=== PATIENT | male | born 1980 | race Caucasian/White ===

== ENCOUNTER 2020-01-16 03:10 | Emergency (ER) | payer SELFPAY ==
[2020-01-16 03:18] VITALS: BP 125/79; PULSE 76; RESP 18; TEMP 36.4; O2SAT 99; BMI 25.8
[2020-01-16 03:21] VITALS: BP 111/63; PULSE 74; RESP 16; O2SAT 97
--- NOTE | 2020-01-16 03:27 | W.ED.EYEPROB ---
HPI - Eye Problem General: Chief complaint: Eye Problems Stated complaint: foreign object in eye Time Seen by Provider: 01/16/20 03:16 History of Present Illness: HPI Narrative: Mr. Gipson is a nice 39-year-old male who is using a wire brush on metal yesterday so he could paint something. He felt something fly up underneath his safety goggles and get in his eye but it was only irritating for a few seconds. Tonight he woke up with severe pain in his left eye with matting. He states his vision is blurred because of this. He denies any other complaints or concerns. Review of Systems General: Reports: 10 or more systems reviewed and unremarkable except in HPI and below PFSH ED PFSH: Social History Smoking and tobacco status: current every day smoker Physical Exam Const: COMMON NORMALS: no apparent distress, oriented x3, no limitations, healthy appearing and well nourished EXAM LIMITATIONS: no altered mental status GENERAL APPEARANCE: cooperative, well kempt and well developed ORIENTATION/CONSCIOUSNESS: Yes awake HENMT: COMMON NORMALS: normocephalic, head/scalp atraumatic, hearing grossly normal bilaterally, external ears normal, EAC's normal, external nose normal and moist oral mucous membranes HEAD & SCALP: normal to inspection, normocephalic and atraumatic FACE & SINUS: normal facial exam and face symmetric NOSE: external nose normal and nares normal EXTERNAL EAR: Yes external ears normal EXTERNAL AUDITORY CANAL: EAC's normal MOUTH: oral and palatal mucosa normal and tongue normal Eye: COMMON NORMALS: PERRL, EOMs intact bilaterally, no scleral icterus and normal visual miner by confrontation VISUAL ACUITY: Yes other (See nurses notes) VISUAL MINER: No peripheral vision loss and No central vision loss ALIGNMENT: Yes alignment normal PERIORBITAL: periorbital findings normal EYELID: other (Left eyelid with mild swelling) CONJUNCTIVA: Yes conjunctiva abnormal positive left conjunctival injection SCLERA: sclerae normal PUPIL: Yes PERRL EOM: Yes EOM abnormal OTHER: Slit-lamp was nonfunctioning so cannot be used. Gonzalez lamp revealed floor seen uptake at 3 spots in the inferior medial portion of the left cornea. Inverted eyelid revealed no evidence of foreign body underneath eyelid. Neck/C-Spine: COMMON NORMALS: full ROM, no lymphadenopathy, supple, no meningeal signs and no JVD GENERAL: Yes normal visual inspection and Yes trachea midline CERVICAL SPINE: Yes cervical ROM normal Chest: COMMONS NORMALS: inspection of chest normal and palpation of chest normal Resp: COMMON NORMALS: normal respiratory effort, no retractions, no use of accessory muscles and clear to auscultation bilaterally EFFORT & INSPECTION: Yes able to speak in complete sentences AUSCULTATION: clear to auscultation bilaterally Cardio: COMMON NORMALS: no JVD, regular rate, regular rhythm, S1 normal heart sound, S2 normal heart sound, no gallops, no clicks, no murmurs and no rub JUGULAR VENOUS DISTENTION: no JVD RATE: regular rate RHYTHM: regular rhythm HEART SOUNDS: S1 normal and S2 normal GI: COMMON NORMALS: soft to palpation, non-tender, no hepatosplenomegaly and no masses INSPECTION: Yes normal to inspection PALPATION: Yes soft and Yes no hepatosplenomegaly : COMMON NORMALS: Yes no CVA tenderness BLADDER/KIDNEY EXAM: Yes no CVA tenderness Back/Pelvis: COMMON NORMALS: no CVA tenderness, thoracic and lumbar spine normal to inspection, no thoracic nor lumbar tenderness and thoraco-lumbar ROM normal Extremity: COMMON NORMALS: normal to inspection, full ROM, normal capillary refill, no joint enlargement, no clubbing, cyanosis or edema and no calf tenderness Neuro: COMMON NORMALS: oriented x3, CN's II-XII intact bilaterally, moves all extremities, no focal motor deficits and no sensory deficits noted MENINGEAL SIGNS: Yes no meningeal signs Psych: COMMON NORMALS: mental status grossly normal, thought process normal, cooperative, affect normal, speech normal and activity/motor behavior normal APPEARANCE: Yes well kempt SPEECH: Yes normal speech THOUGHT PROCESS: normal thought process Skin: COMMON NORMALS: no rashes or lesions noted, skin turgor normal, no jaundice, no petechiae and no mottling GENERAL SKIN EXAM: no rashes or lesions noted and turgor normal Course Vital Signs: Vital signs: Vital Signs Temperature 97.6 F 01/16/20 03:18 Pulse Rate 76 01/16/20 03:18 Respiratory Rate 18 01/16/20 03:18 Blood Pressure 125/79 01/16/20 03:18 Pulse Oximetry 99 01/16/20 03:18 MDM - Eye Problem MDM Narrative: Medical decision making narrative: Our slit-lamp has failed and did not work. I was unable to remove the foreign body using the Gonzalez lamp. I reviewed the case in full with Dr. Cage who is in agreement to see the patient in his office at 1 PM for removal of the foreign body. I reviewed this with the patient and he affirms to me that he will be able to make that appointment. He will be given a pain pill here and discharged home with 2 pain pills and erythromycin ointment. Discharge Plan Discharge Patient Disposition: Home, Self-Care Clinical Impression: Acute foreign body of right cornea Qualifiers: Encounter type: initial encounter Qualified Code(s): T15.01XA - Foreign body in cornea, right eye, initial encounter Condition: Stable Prescriptions: No Action No Known Home Medications RF: 0 Discharge Orders: Discharge Order (Routine); Ordered 01/16/20 Ordered By: Emilie Olvera Referrals: Erich Cage MD [Physician] - 1-3 days (Be at Dr. Cage office approximately 15 minutes before 1 PM as he will examine you in his office and help remove the foreign body from your eye.) Discharge Diet: Usual diet Discharge Activity: Increase activity as tolerated Patient Instructions: Eye Foreign Body (ED) Activity Restrictions/Additional Instructions: Please return to the ER immediately for any of the signs or symptoms listed on your discharge instruction sheets, worsening/changing of your symptoms, you are not getting better as quickly as expected, or for ANY other cause or concerns. Be certain to follow-up with Dr. 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
[2020-01-16] MEDS: tetracaine 0.5% Op Soln 4 mL Btl 1 DROP EYE-BOTH (03:31)
[2020-01-16] MEDS: fluorescein 1 mg Strip EYE-BOTH (03:31)
--- NOTE | 2020-01-16 03:32 | PC.NURSE ---
Visual Acuity - Right 20/25 Left - 20/25 Both - 20/20
[2020-01-16] MEDS: HYDROcodone-acetaminophen 5-325 mg Tablet 3 TAB PO (03:44)
[2020-01-16] MEDS: erythromycin Op Oint 1 gm 1 APPLIC EYE-LEFT (03:47)
== END 2020-01-16 03:55 | disposition home or self-care (01) ==
PROVIDERS: Emergency Provider Emergency Medicine
DX: T15.01XA Foreign body in cornea, right eye, initial encounter (principal); X58.XXXA Exposure to other specified factors, initial encounter; F17.200 Nicotine dependence, unspecified, uncomplicated
CPT/HCPCS: 12345; 99281; 99283

== ENCOUNTER 2020-04-18 16:00 | Emergency (ER) | payer SELFPAY ==
[2020-04-18 16:10] VITALS: BP 133/87; PULSE 84; RESP 24; TEMP 36.9; O2SAT 100; BMI 28.7
--- NOTE | 2020-04-18 16:15 | ECG_ITS ---
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 Measurements Intervals [place] Rate: 76 P: 65 LA: 157 QRS: 55 QRSD: 110 T: 61 QT: 367 QTc: 413 Interpretive Statements SINUS RHYTHM No previous ECG available for comparison Electronically Signed On 04-18-2020 16:41:47 CDT by Britton Salvador M.D. [id number]
--- NOTE | 2020-04-18 16:15 | XR_ITS ---
WS: [id number] Portable AP upright chest, 04/18/2020 Clinical Data: cp Comparison: None. Findings: No nodules, masses or effusions are seen. The heart is normal. The pulmonary vascularity is not increased. No pneumonia or pneumothorax is seen. XR/XR chest 1V portable [id number] Impression: Negative chest.
--- NOTE | 2020-04-18 16:17 | W.ED.SOB ---
Documented by User: Radha Stauffer MD 04/19/20 05:57 HPI - SOB/Dyspnea General: Chief Complaint: Shortness of Breath/Dyspnea Stated Complaint: sob Time Seen by Provider: 04/18/20 16:11 Source: patient Mode of arrival: ambulatory Limitations: no limitations History of Present Illness: HPI Narrative: 39-year-old male who states he has been having shortness of breath over the last 2 days. Patient appears quite anxious. He states he is having these sharp pains in his chest and feels like he just cannot get a short deep breath then. He has any history of respiratory issues. He has no wheezing. He denies any fever or vomiting. He denies any cough. He states he was a former smoker and just quit recently. Associated symptoms: Deny abdominal pain, chest pain, fever(s), nausea or vomiting Review of Systems Const: Denies: fever(s), chills, body aches or change in appetite Eyes: Denies: blurry vision or eye discomfort ENMT: Denies: throat pain or dental pain Card: Denies: chest pain Resp: Reports: dyspnea GI: Denies: abdominal pain, nausea, vomiting or diarrhea : Denies: dysuria Musc: Denies: neck pain or back pain Skin/Breast: Denies: rash Neuro: Denies: headache(s) Psych: Denies: depression Tyler/Lymph: Denies: easy bruising All/Imm: Denies: urticaria PFSH ED PFSH: Social History Smoking and tobacco status: current every day smoker Physical Exam Const: COMMON NORMALS: no acute distress, patient oriented x3 and healthy appearing HENMT: COMMON NORMALS: normocephalic and atraumatic HEAD & SCALP: normocephalic and atraumatic Eye: COMMON NORMALS: Equal, round and reactive pupils present and EOMs intact bilaterally PUPIL: Yes Equal, round and reactive pupils present Neck/C-Spine: COMMON NORMALS: full ROM and supple Chest: COMMONS NORMALS: normal inspection of the chest and normal palpation of entire chest wall Resp: COMMON NORMALS: normal respiratory effort, No retractions, No use of accessory muscles and clear to auscultation bilaterally AUSCULTATION: clear to auscultation bilaterally Cardio: COMMON NORMALS: regular rate, regular rhythm and No murmurs present (Cardio) RATE: regular rate RHYTHM: regular rhythm GI: COMMON NORMALS: Normal to inspection, nondistended, normoactive bowel sounds present, Soft to palpation, non-tender and no masses PALPATION: Yes Soft to palpation Extremity: COMMON NORMALS: normal to inspection and full ROM Neuro: COMMON NORMALS: patient oriented x3, moves all extremities and no focal motor deficits Psych: COMMON NORMALS: mental status grossly normal, Normal thought process present and cooperative MOOD & AFFECT: Yes anxious THOUGHT PROCESS: Normal thought process present Skin: COMMON NORMALS: no rashes or lesions noted and no wounds GENERAL SKIN EXAM: no rashes or lesions noted Course Vital Signs: Vital signs: Vital Signs Temperature 98.5 F 04/18/20 16:10 Pulse Rate 66 04/18/20 19:51 Respiratory Rate 14 04/18/20 19:51 Blood Pressure 124/68 04/18/20 19:51 Pulse Oximetry 99 04/18/20 19:51 MDM - SOB/Dyspnea MDM Narrative: Medical decision making narrative: Patient presents for shortness of breath along with atypical chest pain. Patient's x-ray and lab work are normal. His first troponin and d-dimer are negative. When spoke to patient he still states he just feels like he cannot get air and. He has no wheezing but will give him Decadron along with a breathing treatment. We will get a CTA of his chest and check 2-hour troponin. Patient's care turned over to Dr. Roman. Patient has not required any oxygen has had normal vital signs here. Lab Data: Labs: Lab Results 04/18/20 04/18/20 04/18/20 Range/Units 16:35 16:35 16:35 WBC 7.0 (4.0-10.0) 10^3/ uL RBC 4.26 (4.1-5.3) 10^6/u L Hgb 13.5 (11.7-16.6) g/dL Hct 40.0 L (42.0-52.0) % MCV 93.9 (80-94) fL MCH 31.7 (28.0-34.0) pg MCHC 33.8 (30.0-36.0) g/dL RDW 12.3 (12.1-15.1) % Plt Count 213 (130-400) 10^3/c mm MPV 11.2 H (7.4-10.4) fL Neut % (Auto) 56.3 % Lymph % (Auto) 21.0 % [place] % (Auto) 7.8 % Eos % (Auto) 14.2 % Baso % (Auto) 0.4 % Neut # (Auto) 3.96 (1.8-7.7) 10^3/u L Lymph # (Auto) 1.5 (0.8-4.8) 10^3/u L [place] # (Auto) 0.6 (0.2-0.9) 10^3/u L Eos # (Auto) 1.0 H (0.0-0.8) 10^3/u L Baso # (Auto) 0.0 (0.0-0.1) 10^3/u L Nucleated RBC % (a uto) 0 % Nucleated RBCs # 0.0 /100WBC PT 12.30 (10.5-13.3) SECO NDS INR 0.89 (0.8-1.2) D-Dimer 0.34 (0-0.59) ug/mIFE U Sodium 141 (136-145) mmol/L Potassium 3.6 (3.5-5.1) mmol/L Chloride 107 (98-107) mmol/L Carbon Dioxide 24 (22-29) mmol/L Anion Gap 13.6 (5-19) BUN 15 (6-20) mg/dL Creatinine 0.8 (0.7-1.2) mg/dL GFR Calculation 106.5 (90-130) mL/min Glucose 105 (65-115) mg/dL Calculated Osmolal ity 289 (285-295) mOsm/k g Calcium 9.0 (8.5-10.5) mg/dL Total Bilirubin 0.2 (0.15-1.2) mg/dL AST 16 (0-40) U/L ALT 25 (0-41) U/L Alkaline Phosphata se 83 (40-130) IU/L Troponin T Baselin e (0-15) ng/L Troponin T 120 Min [place] (0-15) ng/L Delta Troponin T (0-10) ABS# NT-Pro-B Natriuret Pep 25 (0-125) pg/mL Total Protein 6.7 (6.6-8.7) g/dL Albumin 4.3 (3.5-5.2) g/dL Globulin 2.4 (1.3-4.6) g/dL 04/18/20 04/18/20 Range/Units 16:35 18:15 WBC (4.0-10.0) 10^3/ uL RBC (4.1-5.3) 10^6/u L Hgb (11.7-16.6) g/dL Hct (42.0-52.0) % MCV (80-94) fL MCH (28.0-34.0) pg MCHC (30.0-36.0) g/dL RDW (12.1-15.1) % Plt Count (130-400) 10^3/c mm MPV (7.4-10.4) fL Neut % (Auto) % Lymph % (Auto) % [place] % (Auto) % Eos % (Auto) % Baso % (Auto) % Neut # (Auto) (1.8-7.7) 10^3/u L Lymph # (Auto) (0.8-4.8) 10^3/u L [place] # (Auto) (0.2-0.9) 10^3/u L Eos # (Auto) (0.0-0.8) 10^3/u L Baso # (Auto) (0.0-0.1) 10^3/u L Nucleated RBC % (a uto) % Nucleated RBCs # /100WBC PT (10.5-13.3) SECO NDS INR (0.8-1.2) D-Dimer (0-0.59) ug/mIFE U Sodium (136-145) mmol/L Potassium (3.5-5.1) mmol/L Chloride (98-107) mmol/L Carbon Dioxide (22-29) mmol/L Anion Gap (5-19) BUN (6-20) mg/dL Creatinine (0.7-1.2) mg/dL GFR Calculation (90-130) mL/min Glucose (65-115) mg/dL Calculated Osmolal ity (285-295) mOsm/k g Calcium (8.5-10.5) mg/dL Total Bilirubin (0.15-1.2) mg/dL AST (0-40) U/L ALT (0-41) U/L Alkaline Phosphata se (40-130) IU/L Troponin T Baselin e 6 (0-15) ng/L Troponin T 120 Min [place] 6.00 (0-15) ng/L Delta Troponin T 0 (0-10) ABS# NT-Pro-B Natriuret Pep (0-125) pg/mL Total Protein (6.6-8.7) g/dL Albumin (3.5-5.2) g/dL Globulin (1.3-4.6) g/dL Imaging Data^: CXR: Attestation: I personally reviewed and interpreted this imaging study as follows: Radiologist's impression: XRay Report Signed Patient: Guillermo Head Unit #: [id number] : 1980 Age/Sex: 39 / M ADM Date: 04/18/20 Loc: ER Room/Bed: Attending Dr: Ordering Provider/Ordering MD: Radha Stauffer MD Date of Service: 04/18/20 Procedure(s): XR chest 1V portable [id number] Accession Number(s): [id number] Report Number: [id number] WS: [id number] Portable AP upright chest, 04/18/2020 Clinical Data: cp Comparison: None. Findings: No nodules, masses or effusions are seen. The heart is normal. The pulmonary vascularity is not increased. No pneumonia or pneumothorax is seen. XR/XR chest 1V portable [id number] Impression: Negative chest. EKG Data^: EKG 1: Attestation: I personally reviewed and interpreted this EKG as follows: EKG Interpretation Date: 04/18/20 EKG interpretation time: 16:32 Interpretation: nsr hr [address] or t wave abnormalities qrs 110 qtc 397 Discharge Plan Discharge Patient Disposition: Home, Self-Care Clinical Impression: Acute bronchitis with bronchospasm, Incidental pulmonary nodule Condition: Stable Prescriptions: New prednisone 10 mg tablet 20 mg PO TID 5 Days Qty: 30 RF: 0 doxycycline hyclate 100 mg capsule 100 mg PO BID 10 Days Qty: 20 RF: 0 albuterol sulfate 90 mcg/actuation HFA aerosol inhaler 2 inh INHALATION Q4H PRN (Reason: shortness of breath or wheezing) Qty: 6.7 RF: 0 hydroxyzine pamoate 50 mg capsule 50 mg PO TID PRN (Reason: anxiety) Qty: 30 RF: 0 No Action Tylenol Extra Strength 500 mg Tablet 2,500 mg PO PRN RF: 0 Discharge Orders: Discharge Order (Routine); Ordered 04/18/20 Ordered By: Emilie Olvera Discharge Diet: Advance as tolerated Discharge Activity: Increase activity as tolerated Patient Instructions: Acute Bronchitis (ED) Activity Restrictions/Additional Instructions: Please return to the ER immediately for any of the signs or symptoms listed on your discharge instruction sheets, worsening/changing of your symptoms, you are not getting better as quickly as expected, or for ANY other cause or concerns. Please return to the ER for chest pain, return of your shortness of breath, fever, vomiting, or for any other cause for concern. Our case management department will call you to help you set up with a primary care physician. Be certain to follow-up for recheck of your pulmonary nodule as well. Discharge Date/Time: 04/18/20 19:53 Sign Out Sign Out Data: Patient Sign Out occurred on 04/18/20 at 18:20. Patient's care was discussed, and care was transferred from to Emilie Olvera. Coding Level of Care Code ED Kennel Supervisor for Chg Fwd Exam Comprehensive Documented by User: Emilie Olvera 04/18/20 21:29 HPI - SOB/Dyspnea General: Chief Complaint: Shortness of Breath/Dyspnea Stated Complaint: sob Time Seen by Provider: 04/18/20 16:11 PFSH ED PFSH: Social History Smoking and tobacco status: current every day smoker Course Vital Signs: Vital signs: Vital Signs Temperature 98.5 F 04/18/20 16:10 Pulse Rate 66 04/18/20 19:51 Respiratory Rate 14 04/18/20 19:51 Blood Pressure 124/68 04/18/20 19:51 Pulse Oximetry 99 04/18/20 19:51 MDM - SOB/Dyspnea MDM Narrative: Medical decision making narrative: Patient turned over to me, Dr. Olvera at change of shift from Dr. Stauffer. Please see his note for his history, physical exam and medical decision-making notes. At the time of my exam the patient has no complaints or concerns other than he states he feels anxious. 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 On my exam the patient does not have any wheezing but he has already received a breathing treatment once by Dr. Stauffer. Patient ultimately states he wants to go home and I have discussed all his findings and risk factors with him but after his CT is back and he wants to be discharged if it is normal. He requests we refer him to a regular doctor and I will have case management work on this. Currently the patient is feeling much better and is ready to go home. At this time I see no sign of acute coronary syndrome, his heart score is 1. CT is ordered to definitively rule out PE and nothing that he describes sounds like acute aortic dissection, pneumonia, pneumothorax or any other life-threatening cause of chest pain. Patient's CT has come back normal and he wants to be discharged. I will place him on a brief course of steroids for his asthma. He agrees to return should his symptoms change or worsen. He understands he is welcome to return anytime even if he changes his mind. Lab Data: Attestation: I reviewed the patient's lab results. Labs: Lab Results 04/18/20 04/18/20 04/18/20 Range/Units 16:35 16:35 16:35 WBC 7.0 (4.0-10.0) 10^3/ uL RBC 4.26 (4.1-5.3) 10^6/u L Hgb 13.5 (11.7-16.6) g/dL Hct 40.0 L (42.0-52.0) % MCV 93.9 (80-94) fL MCH 31.7 (28.0-34.0) pg MCHC 33.8 (30.0-36.0) g/dL RDW 12.3 (12.1-15.1) % Plt Count 213 (130-400) 10^3/c mm MPV 11.2 H (7.4-10.4) fL Neut % (Auto) 56.3 % Lymph % (Auto) 21.0 % [place] % (Auto) 7.8 % Eos % (Auto) 14.2 % Baso % (Auto) 0.4 % Neut # (Auto) 3.96 (1.8-7.7) 10^3/u L Lymph # (Auto) 1.5 (0.8-4.8) 10^3/u L [place] # (Auto) 0.6 (0.2-0.9) 10^3/u L Eos # (Auto) 1.0 H (0.0-0.8) 10^3/u L Baso # (Auto) 0.0 (0.0-0.1) 10^3/u L Nucleated RBC % (a uto) 0 % Nucleated RBCs # 0.0 /100WBC PT 12.30 (10.5-13.3) SECO NDS INR 0.89 (0.8-1.2) D-Dimer 0.34 (0-0.59) ug/mIFE U Sodium 141 (136-145) mmol/L Potassium 3.6 (3.5-5.1) mmol/L Chloride 107 (98-107) mmol/L Carbon Dioxide 24 (22-29) mmol/L Anion Gap 13.6 (5-19) BUN 15 (6-20) mg/dL Creatinine 0.8 (0.7-1.2) mg/dL GFR Calculation 106.5 (90-130) mL/min Glucose 105 (65-115) mg/dL Calculated Osmolal ity 289 (285-295) mOsm/k g Calcium 9.0 (8.5-10.5) mg/dL Total Bilirubin 0.2 (0.15-1.2) mg/dL AST 16 (0-40) U/L ALT 25 (0-41) U/L Alkaline Phosphata se 83 (40-130) IU/L Troponin T Baselin e (0-15) ng/L Troponin T 120 Min [place] (0-15) ng/L Delta Troponin T (0-10) ABS# NT-Pro-B Natriuret Pep 25 (0-125) pg/mL Total Protein 6.7 (6.6-8.7) g/dL Albumin 4.3 (3.5-5.2) g/dL Globulin 2.4 (1.3-4.6) g/dL 04/18/20 04/18/20 Range/Units 16:35 18:15 WBC (4.0-10.0) 10^3/ uL RBC (4.1-5.3) 10^6/u L Hgb (11.7-16.6) g/dL Hct (42.0-52.0) % MCV (80-94) fL MCH (28.0-34.0) pg MCHC (30.0-36.0) g/dL RDW (12.1-15.1) % Plt Count (130-400) 10^3/c mm MPV (7.4-10.4) fL Neut % (Auto) % Lymph % (Auto) % [place] % (Auto) % Eos % (Auto) % Baso % (Auto) % Neut # (Auto) (1.8-7.7) 10^3/u L Lymph # (Auto) (0.8-4.8) 10^3/u L [place] # (Auto) (0.2-0.9) 10^3/u L Eos # (Auto) (0.0-0.8) 10^3/u L Baso # (Auto) (0.0-0.1) 10^3/u L Nucleated RBC % (a uto) % Nucleated RBCs # /100WBC PT (10.5-13.3) SECO NDS INR (0.8-1.2) D-Dimer (0-0.59) ug/mIFE U Sodium (136-145) mmol/L Potassium (3.5-5.1) mmol/L Chloride (98-107) mmol/L Carbon Dioxide (22-29) mmol/L Anion Gap (5-19) BUN (6-20) mg/dL Creatinine (0.7-1.2) mg/dL GFR Calculation (90-130) mL/min Glucose (65-115) mg/dL Calculated Osmolal ity (285-295) mOsm/k g Calcium (8.5-10.5) mg/dL Total Bilirubin (0.15-1.2) mg/dL AST (0-40) U/L ALT (0-41) U/L Alkaline Phosphata se (40-130) IU/L Troponin T Baselin e 6 (0-15) ng/L Troponin T 120 Min [place] 6.00 (0-15) ng/L Delta Troponin T 0 (0-10) ABS# NT-Pro-B Natriuret Pep (0-125) pg/mL Total Protein (6.6-8.7) g/dL Albumin (3.5-5.2) g/dL Globulin (1.3-4.6) g/dL Imaging Data^: CXR: My impression: No acute cardiopulmonary findings. CT Chest: Radiologist's impression: [place] [address] CT Scan Report Signed Patient: Guillermo Head Unit #: [id number] : 1980 Age/Sex: 39 / M ADM Date: 04/18/20 Loc: ER Room/Bed: Attending Dr: Ordering Provider/Ordering MD: Radha Stauffer MD Date of Service: 04/18/20 Procedure(s): CT angio chest PE protcl [id number] Accession Number(s): [id number] Report Number: [id number] PROCEDURE INFORMATION: Exam: CT Angiography Chest With Contrast Exam date and time: 04/18/2020 5:33 PM Age: 39 years old Clinical indication: Dyspnea TECHNIQUE: Imaging protocol: Computed tomographic angiography of the chest with intravenous contrast. 3D rendering: MIP and/or 3D reconstructed images were created by the technologist. Radiation optimization: All CT scans at this facility use at least one of these dose optimization techniques: automated exposure control; mA and/or kV adjustment per patient size (includes targeted exams where dose is matched to clinical indication); or iterative reconstruction. Contrast material: OMNI 350; Contrast volume: 85 ml; Contrast route: INTRAVENOUS (IV); COMPARISON: CR XR chest 1V portable [id number] 04/18/2020 4:33 PM RADIATION DOSE METRICS: Total DLP (mGy-cm): 629.08 FINDINGS: Pulmonary arteries: Normal. No pulmonary emboli. Aorta: Unremarkable. No aortic aneurysm. No aortic dissection. Lungs: 5 mm peripheral right lower lobe nodule (series 2, axial image 247). No acute infiltrates. Pleural space: Unremarkable. No pneumothorax. No pleural effusion. Heart: Unremarkable. No cardiomegaly. No pericardial effusion. Lymph nodes: Unremarkable. No enlarged lymph nodes. Bones/joints: Unremarkable. No acute fracture. Soft tissues: Unremarkable. CT/CT angio chest PE protcl [id number] IMPRESSION: 1.) No acute process evident. 2.) Small 5 mm right lung base nodule. Per Fleischner Society guidelines, low risk patient, no routine follow-up indicated. High risk patient, consider optional CT at 12 months. Radiation Dose CTDIVOL = (mGy): DLP = 629.08 (mGy-cm) Dictated By: Will Chairez MD Signed By: Will Chairez MD Signed Date/Time: 04/18/201907 DD/ 05 EKG Data^: EKG 1: Attestation: I personally reviewed and interpreted this EKG as follows: EKG Interpretation Date: 04/18/20 EKG interpretation time: 16:32 Interpretation: Normal sinus rhythm at 76 beats a minute, nonspecific ST-T wave changes. EKG 2: Attestation: I personally reviewed and interpreted this EKG as follows: EKG Interpretation Date: 04/18/20 EKG interpretation time: 18:13 Interpretation: Normal sinus rhythm at 69 beats a minute, nonspecific ST and T wave changes, no acute findings. Unchanged from previous. Discharge Plan Discharge Patient Disposition: Home, Self-Care Clinical Impression: Acute bronchitis with bronchospasm, Incidental pulmonary nodule Condition: Stable Prescriptions: New prednisone 10 mg tablet 20 mg PO TID 5 Days Qty: 30 RF: 0 doxycycline hyclate 100 mg capsule 100 mg PO BID 10 Days Qty: 20 RF: 0 albuterol sulfate 90 mcg/actuation HFA aerosol inhaler 2 inh INHALATION Q4H PRN (Reason: shortness of breath or wheezing) Qty: 6.7 RF: 0 hydroxyzine pamoate 50 mg capsule 50 mg PO TID PRN (Reason: anxiety) Qty: 30 RF: 0 No Action Tylenol Extra Strength 500 mg Tablet 2,500 mg PO PRN RF: 0 Discharge Orders: Discharge Order (Routine); Ordered 04/18/20 Ordered By: Emilie Olvera Discharge Diet: Advance as tolerated Discharge Activity: Increase activity as tolerated Patient Instructions: Acute Bronchitis (ED) Activity Restrictions/Additional Instructions: Please return to the ER immediately for any of the signs or symptoms listed on your discharge instruction sheets, worsening/changing of your symptoms, you are not getting better as quickly as expected, or for ANY other cause or concerns. Please return to the ER for chest pain, return of your shortness of breath, fever, vomiting, or for any other cause for concern. Our case management department will call you to help you set up with a primary care physician. Be certain to follow-up for recheck of your pulmonary nodule as well. Discharge Date/Time: 04/18/20 19:53 Sign Out Sign Out Data: Patient Sign Out occurred on 04/18/20 at 18:20. Patient's care was discussed, and care was transferred from to Emilie Olvera. Coding Level of Care Code ED Kennel Supervisor for Flavia Fwd Exam Comprehensive
[2020-04-18 16:44] LABS: Basophils % 0.4 %; Eosinophils % 14.2 %; Hemoglobin 13.5 g/dL (11.7-16.6); Lymphocytes # 1.5 10^3/uL (0.8-4.8); Mean Corpuscular HGB Conc 33.8 g/dL (30.0-36.0); Mean Corpuscular Hemoglobin 31.7 pg (28.0-34.0); Mean Corpuscular Volume 93.9 fL (80-94); Mean Platelet Volume 11.2 fL (7.4-10.4); Monocytes # 0.6 10^3/uL (0.2-0.9); Monocytes % 7.8 %; Neutrophils # 3.96 10^3/uL (1.8-7.7); Neutrophils % 56.3 %; Nucleated Red Blood Cells % 0 %; Platelet Count 213 10^3/cmm (130-400); Red Blood Count 4.26 10^6/uL (4.1-5.3); Red Cell Distribution Width 12.3 % (12.1-15.1)
[2020-04-18] MEDS: LORazepam 2 mg/mL INJ 1 mL 1 MG IVP (16:45)
[2020-04-18] MEDS: ketorolac 30 mg/mL INJ 15 MG IVP (16:50)
[2020-04-18 16:59] LABS: INR 0.89 (0.8-1.2)
[2020-04-18 17:01] LABS: D Dimer 0.34 ug/mIFEU (0-0.59)
[2020-04-18 17:10] LABS: Troponin(5th) Baseline 6 ng/L (0-15)
[2020-04-18 17:15] VITALS: BP 151/77; PULSE 65; RESP 16; O2SAT 97
[2020-04-18 17:20] LABS: Alanine Aminotransferase 25 U/L (0-41); Albumin Level 4.3 g/dL (3.5-5.2); Alkaline Phosphatase 83 IU/L (40-130); Anion Gap 13.6 (5-19); Aspartate Amino Transferase 16 U/L (0-40); Blood Urea Nitrogen 15 mg/dL (6-20); Carbon Dioxide 24 mmol/L (22-29); Chloride 107 mmol/L (98-107); Globulin 2.4 g/dL (1.3-4.6); Glomerular Filtration Rate 106.5 mL/min (90-130); Glucose 105 mg/dL (65-115); NT Pro B Type Natriuretic Pept 25 pg/mL (0-125); Osmolality Calculated 289 mOsm/kg (285-295); Potassium 3.6 mmol/L (3.5-5.1); Sodium 141 mmol/L (136-145); Total Bilirubin 0.2 mg/dL (0.15-1.2); Total Protein 6.7 g/dL (6.6-8.7)
--- NOTE | 2020-04-18 17:26 | CTR_ITS ---
PROCEDURE INFORMATION: Exam: CT Angiography Chest With Contrast Exam date and time: 04/18/2020 5:33 PM Age: 39 years old Clinical indication: Dyspnea TECHNIQUE: Imaging protocol: Computed tomographic angiography of the chest with intravenous contrast. 3D rendering: MIP and/or 3D reconstructed images were created by the technologist. Radiation optimization: All CT scans at this facility use at least one of these dose optimization techniques: automated exposure control; mA and/or kV adjustment per patient size (includes targeted exams where dose is matched to clinical indication); or iterative reconstruction. Contrast material: OMNI 350; Contrast volume: 85 ml; Contrast route: INTRAVENOUS (IV); COMPARISON: CR XR chest 1V portable [id number] 04/18/2020 4:33 PM RADIATION DOSE METRICS: Total DLP (mGy-cm): 629.08 FINDINGS: Pulmonary arteries: Normal. No pulmonary emboli. Aorta: Unremarkable. No aortic aneurysm. No aortic dissection. Lungs: 5 mm peripheral right lower lobe nodule (series 2, axial image 247). No acute infiltrates. Pleural space: Unremarkable. No pneumothorax. No pleural effusion. Heart: Unremarkable. No cardiomegaly. No pericardial effusion. Lymph nodes: Unremarkable. No enlarged lymph nodes. Bones/joints: Unremarkable. No acute fracture. Soft tissues: Unremarkable. CT/CT angio chest PE protcl [id number] IMPRESSION: 1.) No acute process evident. 2.) Small 5 mm right lung base nodule. Per Fleischner Society guidelines, low risk patient, no routine follow-up indicated. High risk patient, consider optional CT at 12 months. Radiation Dose CTDIVOL = (mGy): DLP = 629.08 (mGy-cm)
[2020-04-18] MEDS: ipratropium-albuterol 3 mL Neb INHALATION (17:41)
[2020-04-18 17:42] VITALS: PULSE 71; RESP 20; O2SAT 100
[2020-04-18 17:49] VITALS: PULSE 71; RESP 18; O2SAT 100
--- NOTE | 2020-04-18 18:15 | ECG_ITS ---
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 Measurements Intervals [place] Rate: 69 P: 64 MA: 160 QRS: 56 QRSD: 107 T: 56 QT: 381 QTc: 410 Interpretive Statements SINUS RHYTHM Compared to ECG 04/18/2020 16:32:16 No significant changes Electronically Signed On 04-19-2020 19:18:31 CDT by Shimon Chau M.D. [id number]
[2020-04-18 18:16] VITALS: BP 127/67; PULSE 71; RESP 16; O2SAT 99
[2020-04-18] MEDS: iohexol 350 mg/mL 100 mL Btl IV (18:28)
[2020-04-18 18:42] LABS: Troponin 5 2HR Delta 0 ABS# (0-10)
--- NOTE | 2020-04-18 18:50 | PC.NURSE ---
Read and agree with assessment.
[2020-04-18 19:51] VITALS: BP 124/68; PULSE 66; RESP 14; O2SAT 99
--- NOTE | 2020-04-19 11:15 | DCPLANNER ---
residential real estate sales manager had message to speak with patient about getting established with a primary care physician. residential real estate sales manager called patient, unable to speak with patient at this time, a voicemail was left for patient to return complex case manager phone call.
== END 2020-04-18 19:53 | disposition home or self-care (01) ==
PROVIDERS: Emergency Medicine; Emergency Provider Emergency Medicine
DX: J20.9 Acute bronchitis, unspecified (principal); R91.1 Solitary pulmonary nodule; F17.210 Nicotine dependence, cigarettes, uncomplicated
CPT/HCPCS: 12345; 36415; 71045; 71275; 80053; 83880; 84484; 85025; 85378; 85610; 93005; 94640; 96374; 96375; 99283; 99284; J1885; J2060; J3490; Q9967

== ENCOUNTER → 2021-09-06 07:17 | Outpatient (BNVA) | payer OTHER, SELFPAY | PROVIDERS: Visit Provider Family Medicine Adult Medicine | DX: Z13.6 Encounter for screening for cardiovascular disorders (principal) | CPT/HCPCS: 80053; 80061; 83036; 84153; 84443; 85025 ==

== ENCOUNTER 2022-02-04 09:56 | Emergency (ER) | payer OTHER, SELFPAY ==
[2022-02-04 09:59] VITALS: BP 141/82; PULSE 93; RESP 18; TEMP 36.3; O2SAT 97; BMI 31.0
--- NOTE | 2022-02-04 11:01 | ED_ITS ---
HPI - Eye Problem General: Chief complaint: Eye Problems Stated complaint: eye injury Time Seen by Provider: 02/04/22 11:00 [facility] ED PFSH: Medical History (Updated 10/10/21 @ 15:21 by Maik Coello MD) Dyslipidemia (high LDL; low HDL) Elevated blood pressure reading FHx: heart disease Surgical History Hx of appendectomy Hx of elbow surgery Family History Other CAD (coronary artery disease) Cancer Hyperlipidemia Hypertension Stroke Social History Alcohol intake: never Marital status: Number of children: 3 Current occupational status: employed Course Vital Signs: Vital signs: Vital Signs Temperature 97.4 F L 02/04/22 09:59 Pulse Rate 93 02/04/22 09:59 Respiratory Rate 18 02/04/22 09:59 Blood Pressure 141/82 02/04/22 09:59 Pulse Oximetry 97 02/04/22 09:59 Discharge Plan Discharge Condition: Stable Prescriptions: No Action niacin 500 mg capsule, extended release 500 mg PO DAILY 90 Days Qty: 90 0RF Tylenol Extra Strength 500 mg Tablet 2,500 mg PO PRN 0RF Referrals: Maik Coello MD [Primary Care Provider] - Coding Level of Care Code ED Rn Advanced for Flavia Connolly
--- NOTE | 2022-02-04 11:05 | W.ED.EYEPROB ---
HPI - Eye Problem General: Chief complaint: Eye Problems Stated complaint: eye injury Time Seen by Provider: 02/04/22 11:00 Source: patient Mode of arrival: ambulatory Limitations: no limitations History of Present Illness: 41-year-old male states that he was grinding a metal 2 days ago and has had eye pain since then. He believes he does have a piece of metal in his right eye he states he has had redness and drainage from that eye with some blurry vision. Denies any worsening proving factors states his pain is currently 5 out of 10. He has not seen anyone for this. Associated symptoms: Denies fever(s), headache(s), nausea, neck pain or vomiting Review of Systems Const: Denies: fever(s), chills, body aches or change in appetite Eyes: Reports: eye discomfort; Denies: blurry vision ENMT: Denies: throat pain or dental pain Card: Denies: chest pain Resp: Denies: dyspnea GI: Denies: abdominal pain, nausea, vomiting or diarrhea : Denies: dysuria Musc: Denies: neck pain or back pain Skin/Breast: Denies: rash Neuro: Denies: headache(s) Psych: Denies: depression Tyler/Lymph: Denies: easy bruising All/Imm: Denies: urticaria PFSH ED PFSH: Medical History Dyslipidemia (high LDL; low HDL) Elevated blood pressure reading FHx: heart disease Surgical History Hx of appendectomy Hx of elbow surgery Family History Other CAD (coronary artery disease) Cancer Hyperlipidemia Hypertension Stroke Social History Alcohol intake: never Marital status: Number of children: 3 Current occupational status: employed Physical Exam Const: COMMON NORMALS: no acute distress, patient oriented x3 and healthy appearing HENMT: COMMON NORMALS: normocephalic and atraumatic HEAD & SCALP: normocephalic and atraumatic Eye: COMMON NORMALS: Equal, round and reactive pupils present and EOMs intact bilaterally PUPIL: Yes Equal, round and reactive pupils present OTHER: Foreign body noted to anterior right eye appears to be a piece of metal Neck/C-Spine: COMMON NORMALS: full ROM and supple Chest: COMMONS NORMALS: normal inspection of the chest and normal palpation of entire chest wall Resp: COMMON NORMALS: normal respiratory effort, No retractions, No use of accessory muscles and clear to auscultation bilaterally AUSCULTATION: clear to auscultation bilaterally Cardio: COMMON NORMALS: regular rate, regular rhythm and No murmurs present (Cardio) RATE: regular rate RHYTHM: regular rhythm GI: COMMON NORMALS: Normal to inspection, nondistended, normoactive bowel sounds present, Soft to palpation, non-tender and no masses PALPATION: Yes Soft to palpation Extremity: COMMON NORMALS: normal to inspection and full ROM Neuro: COMMON NORMALS: patient oriented x3, moves all extremities and no focal motor deficits Psych: COMMON NORMALS: mental status grossly normal, Normal thought process present and cooperative THOUGHT PROCESS: Normal thought process present Skin: COMMON NORMALS: no rashes or lesions noted and no wounds GENERAL SKIN EXAM: no rashes or lesions noted Course Vital Signs: Vital signs: Vital Signs Temperature 97.4 F L 02/04/22 09:59 Pulse Rate 93 02/04/22 09:59 Respiratory Rate 18 02/04/22 09:59 Blood Pressure 141/82 02/04/22 09:59 Pulse Oximetry 97 02/04/22 09:59 MDM - Eye Problem Medical Decision Making Patient presents here with foreign body to his right eye. Was able to remove it successfully with 20-gauge IV catheter does have a rust ring was unable to Latrell as we do not have any more bur drill attachments we will get him follow-up with ophthalmology in 1 to 2 days he is to return if worsening. Discharge Plan Discharge Patient Disposition: Home Clinical Impression: Foreign body, eye Condition: Stable Prescriptions: New erythromycin 5 mg/gram (0.5 %) ointment 1 applic ophthalmic (eye) Q8H 7 Days Qty: 3.5 0RF No Action niacin 500 mg capsule, extended release 500 mg PO DAILY 90 Days Qty: 90 0RF Tylenol Extra Strength 500 mg Tablet 2,500 mg PO PRN 0RF Discharge Orders: Discharge ED (Routine); Ordered 02/04/22 Ordered By: Radha Stauffer Referrals: Maik Coello MD [Primary Care Provider] - Discharge Diet: Advance as tolerated Discharge Activity: Resume usual activity Patient Instructions: Eye Foreign Body (ED) Coding Level of Care Code ED Scientific Programmer Analyst for Flavia Fwd Exam Comprehensive
[2022-02-04] MEDS: fluorescein 1 mg Strip EYE-RIGHT (11:14)
[2022-02-04] MEDS: tetracaine 0.5% Op Soln 4 mL Btl 1 DROP EYE-RIGHT (11:14)
--- NOTE | 2022-02-05 09:25 | DCPLANNER ---
Addendum entered by Tata Hennessy 02/06/22 13:30: broadcast operations manager called the office of Dr. Cage to confirm that clinic received patients referral. broadcast operations manager was told that patient did receive the referral, appointment was scheduled, patient did not attend appointment. Original Note: broadcast operations manager had message to schedule a follow up appointment for patient with Dr. Cage. broadcast operations manager faxed patients information to the office of Dr. Cage. Patients information will be reviewed, clinic will call patient with appointment information.
== END 2022-02-04 11:19 | disposition home or self-care (01) ==
PROVIDERS: Emergency Provider Emergency Medicine; PCP Family Medicine Adult Medicine
DX: T15.91XA Foreign body on external eye, part unspecified, right eye, initial encounter (principal); X58.XXXA Exposure to other specified factors, initial encounter
CPT/HCPCS: 99283

== ENCOUNTER 2024-01-11 03:04 | Emergency (ER) | payer SELFPAY ==
[2024-01-11 03:09] VITALS: BP 142/88; PULSE 71; RESP 16; TEMP 36.3; O2SAT 99; BMI 30.7
[2024-01-11] MEDS: tetracaine 0.5% Op Soln 4 mL Btl 1 DROP EYE-BOTH (03:19)
--- NOTE | 2024-01-11 03:31 | ED_ITS ---
HPI - Eye Problem General: Chief complaint: Eye Problems Stated complaint: Burned Both Eyes Time Seen by Provider: 01/11/24 03:10 History of Present Illness: Patient presents to the ER with bilateral eye pain. 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 This not the first time that this happened to him Review of Systems General: Reports: 10 or more systems reviewed and unremarkable except in HPI and below PFSH ED PFSH: Medical History Dyslipidemia (high LDL; low HDL) FHx: heart disease Elevated blood pressure reading Surgical History Hx of appendectomy Hx of elbow surgery Family History Other CAD (coronary artery disease) Cancer Hyperlipidemia Hypertension Stroke Social History Alcohol intake: never Substance/Drug Use: current Substance/Drug use frequency: daily Marital status: Number of children: 3 Current occupational status: employed Physical Exam Const: COMMON NORMALS: no acute distress, average body habitus, patient oriented x3, no limitations, healthy appearing, alert and well nourished HENMT: COMMON NORMALS: normocephalic, atraumatic, hearing grossly normal bilaterally, external ears normal, Normal external nose present, moist oral mucous membranes and oropharynx normal HEAD & SCALP: normocephalic and atraumatic NOSE: Normal external nose present EXTERNAL EAR: Yes external ears normal Eye: COMMON NORMALS: Equal, round and reactive pupils present (Both sclera are red and irritated) and EOMs intact bilaterally PUPIL: Yes Equal, round and reactive pupils present (Both sclera are red and irritated) Neck/C-Spine: COMMON NORMALS: full ROM, no lymphadenopathy, supple, no meningeal signs, no JVD and Thyroid normal THYROID: Thyroid normal Chest: COMMONS NORMALS: normal inspection of the chest and normal palpation of entire chest wall Resp: COMMON NORMALS: normal respiratory effort, No retractions, No use of accessory muscles and clear to auscultation bilaterally AUSCULTATION: clear to auscultation bilaterally Cardio: COMMON NORMALS: no JVD Neuro: COMMON NORMALS: patient oriented x3 SENSORIUM/ORIENTATION: Yes alert MENINGEAL SIGNS: Yes no meningeal signs Course Vital Signs: Vital signs: Vital Signs Temperature 97.4 F L 01/11/24 03:09 Pulse Rate 80 01/11/24 04:13 Respiratory Rate 14 01/11/24 04:13 Blood Pressure 142/88 01/11/24 03:09 Pulse Oximetry 99 01/11/24 04:13 Oxygen Delivery Me thod Room Air 01/11/24 03:09 MDM - Eye Problem Medical Decision Making It appears patient burned both eyes while welding without appropriate eyewear. These eyes were anesthetized with tetracaine drops which helped very good and patient felt much better. He was discussed why this happened and this was not the patient's first time this is happening. Patient be discharged home to follow-up with his PCP or four slide machine operator on an as-needed basis. Differential Diagnosis Likely conjunctivitis; Unlikely corneal abrasion, acute iritis, hyphema, periorbital cellulitis, subconjunctival hemorrhage, glaucoma, corneal ulcer or ruptured globe Medical Records I reviewed the patient's medical records. Lab Data I reviewed the patient's lab results. No radiology studies performed this visit Discharge Plan Discharge Patient Disposition: Home Clinical Impression: UV keratitis Qualifiers: Laterality: bilateral Qualified Code(s): H16.133 - Photokeratitis, bilateral Condition: Stable Prescriptions: No Action niacin 500 mg capsule, extended release 500 mg PO DAILY 90 Days Qty: 90 0RF Tylenol Extra Strength 500 mg Tablet 2,500 mg PO PRN Discharge Orders: Discharge ED (Routine); Ordered 01/11/24 Ordered By: Ken Chavira Patient Instructions: Corneal Flash Ferrer (ED) Activity Restrictions/Additional Instructions: Please be sure to use your welding goggles when welding as that would have prevented this. Otherwise a symptomatic treatment it should resolve in 2 to 3 days. If not significantly improved in 3 to 4 days please feel free to return to the ER or follow-up with an four slide machine operator. Coding Level of Care Code ED Supervisor Sterile Processing for Flavia Connolly
[2024-01-11 04:13] VITALS: PULSE 80; RESP 14; O2SAT 99
== END 2024-01-11 04:14 | disposition home or self-care (01) ==
PROVIDERS: Emergency Provider Emergency Medicine
DX: H16.133 Photokeratitis, bilateral (principal); E78.5 Hyperlipidemia, unspecified
CPT/HCPCS: 99283

== ENCOUNTER 2024-08-11 16:26 | Emergency (ER) | payer SELFPAY ==
--- NOTE | 2024-08-11 16:38 | ECG_ITS ---
[facility] Test Date: 2024-08-11 Pat Name: Guillermo Head Department: Room: Gender: Male Mingler Operator: : 1980 Requested By: Radha Stauffer Order Number: [id number] Figueroa MD: Tam Ramirez M.D. Measurements Intervals Oblong Rate: 67 P: 60 DE: 162 QRS: 51 QRSD: 101 T: 46 QT: 363 QTc: 384 Interpretive Statements SINUS RHYTHM POSSIBLE LEFT ATRIAL ENLARGEMENT [-0.1mV P-WAVE IN V1/V2] Compared to ECG 04/18/2020 18:13:28 No significant changes Electronically Signed On 08-13-2024 21:20:54 ORTHOPAEDIC NURSE by Tam Ramirez M.D. [email or web address]
[2024-08-11 16:41] VITALS: BP 123/68; PULSE 71; TEMP 36.6; O2SAT 98; BMI 30.1
== END 2024-08-11 17:30 | disposition left against medical advice (07) ==
PROVIDERS: Emergency Provider Emergency Medicine
DX: Z53.21 Procedure and treatment not carried out due to patient leaving prior to being seen by health care provider (principal); R06.02 Shortness of breath
CPT/HCPCS: 93005